=== PATIENT | male | born 1970 | race Caucasian/White ===

== ENCOUNTER 2021-07-21 10:09 | Emergency (ER) | payer SELFPAY ==
[~2021-07-21] VITALS: Ht 165.1 cm; Wt 99.8 kg
[2021-07-21 10:11] VITALS: BP 166/96
[2021-07-21] MEDS ORDERED: ASPIRIN 81 MG TAB.CHEW PO ONE (10:40)
--- NOTE | 2021-07-21 10:43 | NUR ---
Effie hadley in [facility] - 07/21/21 at 1045 by [email or web address] DWAINE HER SWAB DONE.
--- NOTE | 2021-07-21 10:44 | NUR ---
C[facility]DEN SWAB DONE.
--- NOTE | 2021-07-21 10:47 | NUR ---
PT TAKEN TO X RAY
--- NOTE | 2021-07-21 10:50 | NUR ---
C/O 710 MID CHEST PAIN X 3 DAYS AND C/O LEFT ARM NUMBNESS X TODAY. PMH: DENIES
[2021-07-21 11:10] LABS: BASOPHILS # (AUTO) 0.1 K/uL (0.00-0.22); BASOPHILS % (AUTO) 0.9 % (0.0-2.0); EOSINOPHILS # (AUTO) 0.1 K/uL (0-0.4); HEMATOCRIT 47.2 % (36-52); HEMOGLOBIN 16.3 g/dL (12.0-18.0); LYMPHOCYTES # (AUTO) 2.8 K/uL (2.0-11.5); LYMPHOCYTES % (AUTO) 33.8 % (20.5-51.1); MEAN CORPUSCULAR HEMOGLOBIN 33 pg (27-31); MEAN CORPUSCULAR HGB CONC 35 g/dL (33-37); MEAN CORPUSCULAR VOLUME 94.3 fL (80-94); MONOCYTES # (AUTO) 0.5 K/uL (0.8-1.0); MONOCYTES % (AUTO) 5.9 % (1.7-9.3); NEUTROPHILS # (AUTO) 4.8 K/uL (1.8-7.7); NEUTROPHILS % (AUTO) 58.4 % (42.2-75.2); PLATELET COUNT (AUTO) 266 K/uL (140-450); RED CELL DISTRIBUTION WIDTH 13.4 % (11.6-13.7); WHITE BLOOD COUNT (AUTO) 8.3 K/uL (4.8-10.8)
[2021-07-21 11:53] LABS: ALBUMIN 3.7 g/dL (3.4-5.0); ANION GAP 12.5 (8-16); CARBON DIOXIDE 27.1 mmol/L (21-32); CREATININE 0.8 mg/dL (0.6-1.3); POTASSIUM 4.6 mmol/L (3.5-5.1); TOTAL BILIRUBIN 0.3 mg/dL (0.0-1.0)
--- NOTE | 2021-07-21 16:13 | NUR ---
Patient discharged with v/s stable. Written and verbal after care instructions given and explained. Patient verbalized understanding. Ambulatory with steady gait. All questions addressed prior to discharge. Advised to follow up with PMD.
[2021-07-21 16:14] VITALS: BP 137/89
== END 2021-07-21 16:13 | disposition home or self-care (01) ==
LOC: MED 10:09
DX: R07.9 Chest pain, unspecified (principal); F17.210 Nicotine dependence, cigarettes, uncomplicated; Z20.822 Contact with and (suspected) exposure to COVID-19
CPT/HCPCS: 36415; 71045; 80053; 83880; 84484; 85025; 93005; 99285